=== PATIENT | male | born 1980 | race Caucasian/White ===

== ENCOUNTER 2018-03-15 19:04 | Observation (INO) | payer BC, OTHER ==
[2018-03-15] MEDS ORDERED: NITROGLYCERIN OINT 1 INCH/GM PACKET TOPICAL STA (19:14)
[2018-03-15] MEDS ORDERED: ASPIRIN 81 MG PO STA (19:14)
--- NOTE | 2018-03-15 19:16 | ED ---
General Adult HPI - General Chief complaint: Chest Pain Stated complaint: Chest Pain Time Seen by Provider: 03/15/18 19:05 Source: patient, RN notes reviewed Mode of arrival: ambulatory Limitations: no limitations - History of Present Illness Initial comments: This is a 38-year-old male who presents to the emergency department complaining of 20 minutes chest pain patient states the pain radiates to his jaw and his right arm. Patient states he also became very diaphoretic when this happened. Patient denies any smoking history. Patient denies diabetes hypertension high cholesterol. Patient states he has a very strong family history of heart disease his mother had a heart attack when she was in her 30s. Patient denies any recent fever chills or cough. Patient denies any nausea vomiting diarrhea. Patient denies any back pain. Patient denies headache patient denies numbness weakness. Patient denies lightheadedness dizziness or nursing episode. - Related Data Previous Rx's Medication Instructions Recorded Benzonatate [Tessalon Perles] 200 mg PO TID PRN #30 capsule 08/14/14 Famotidine [Pepcid] 20 mg PO BID #40 tablet 08/14/14 Allergies Allergy/AdvReac Type Severity Reaction Status Date / Time No Known Allergies Allergy Verified 03/15/18 19:08 Review of Systems ROS Statement: Those systems with pertinent positive or pertinent negative responses have been documented in the HPI. ROS Other: All systems not noted in ROS Statement are negative. Past Medical History Past Medical History: No Reported History History of Any Multi-Drug Resistant Organisms: None Reported Past Surgical History: No Surgical Hx Reported Past Psychological History: No Psychological Hx Reported Smoking Status: Never smoker Past Alcohol Use History: None Reported Past Drug Use History: None Reported General Exam - General Exam Comments Initial Comments: GENERAL: Patient is well-developed and well-nourished. Patient is nontoxic and well- hydrated and is in mild distress. ENT: Neck is soft and supple. No significant lymphadenopathy is noted. Oropharynx is clear. Moist mucous membranes. Neck has full range of motion without eliciting any pain. EYES: The sclera were anicteric and conjunctiva were pink and moist. Extraocular movements were intact and pupils were equal round and reactive to light. Eyelids were unremarkable. PULMONARY: Unlabored respirations. Good breath sounds bilaterally. No audible rales rhonchi or wheezing was noted. CARDIOVASCULAR: There is a regular rate and rhythm without any murmurs gallops or rubs. ABDOMEN: Soft and nontender with normal bowel sounds. No palpable organomegaly was noted. There is no palpable pulsatile mass. SKIN: Skin is clear with no lesions or rashes and otherwise unremarkable. NEUROLOGIC: Patient is alert and oriented x3. Cranial nerves II through XII are grossly intact. Motor and sensory are also intact. Normal speech, volume and content. Symmetrical smile. MUSCULOSKELETAL: Normal extremities with adequate strength and full range of motion. No lower extremity swelling or edema. No calf tenderness. LYMPHATICS: No significant lymphadenopathy is noted PSYCHIATRIC: Normal psychiatric evaluation. Normal interpersonal interactions appears functionally intact in deals appropriately with others. No signs of depression. No signs of anxiety. Limitations: no limitations Course Vital Signs 03/15/18 19:06 Temperature 97.7 F Pulse Rate 108 H Respiratory 18 Rate Blood Pressure 149/76 O2 Sat by Pulse 98 Oximetry Medical Decision Making - Medical Decision Making EKG shows normal sinus rhythm at 76 bpm ME interval is 176 dresses 90 QT interval 382 QTC is 429. Patient's EKG shows no ST segment elevation or depression or T wave abnormalities are noted. No extrasystoles noted. Chest x-ray shows no acute abnormality. Patient's chest pains were consistent with unstable angina so I put the patient on heparin. I spoke with Dr. Graves's nurse practitioner accept the patient admitted the patient I wrote admitting orders I consult to cardiology. I continued heparin and aspirin and Nitropaste on the floor. - Lab Data Result diagrams: 03/15/18 19:27 03/15/18 19:27 Lab Results 03/15/18 03/15/18 03/15/18 Range/Units 19:27 19:27 19:27 WBC 7.7 (3.8-10.6) k/uL RBC 4.86 (4.30-5.90) m/uL Hgb 15.1 (13.0-17.5) gm/dL Hct 45.6 (39.0-53.0) % MCV 93.7 (80.0-100.0) fL MCH 31.0 (25.0-35.0) pg MCHC 33.1 (31.0-37.0) g/dL RDW 12.7 (11.5-15.5) % Plt Count 287 (150-450) k/uL Neutrophils % 58 % Lymphocytes % 30 % Monocytes % 7 % Eosinophils % 3 % Basophils % 1 % Neutrophils # 4.4 (1.3-7.7) k/uL Lymphocytes # 2.3 (1.0-4.8) k/uL Monocytes # 0.5 (0-1.0) k/uL Eosinophils # 0.2 (0-0.7) k/uL Basophils # 0.1 (0-0.2) k/uL PT (9.0-12.0) sec INR (<1.2) APTT (22.0-30.0) sec Sodium 145 (137-145) mmol/L Potassium 4.1 (3.5-5.1) mmol/L Chloride 106 (98-107) mmol/L Carbon Dioxide 27 (22-30) mmol/L Anion Gap 12 mmol/L BUN 24 H (9-20) mg/dL Creatinine 1.10 (0.66-1.25) mg/dL Est GFR (CKD-EPI)AfAm >90 (>60 ml/min/1.73 sqM) Est GFR (CKD-EPI)NonAf 84 (>60 ml/min/1.73 sqM) Glucose 95 (74-99) mg/dL Calcium 9.7 (8.4-10.2) mg/dL Magnesium 1.8 (1.6-2.3) mg/dL Total Bilirubin 0.3 (0.2-1.3) mg/dL AST 26 (17-59) U/L ALT 39 (21-72) U/L Alkaline Phosphatase 109 (38-126) U/L Total Creatine Kinase 69 (55-170) U/L CK-MB (CK-2) 0.3 (0.0-2.4) ng/mL CK-MB (CK-2) Rel Index 0.4 Troponin I <0.012 (0.000-0.034) ng/mL Total Protein 7.2 (6.3-8.2) g/dL Albumin 4.3 (3.5-5.0) g/dL 03/15/18 Range/Units 19:27 WBC (3.8-10.6) k/uL RBC (4.30-5.90) m/uL Hgb (13.0-17.5) gm/dL Hct (39.0-53.0) % MCV (80.0-100.0) fL MCH (25.0-35.0) pg MCHC (31.0-37.0) g/dL RDW (11.5-15.5) % Plt Count (150-450) k/uL Neutrophils % % Lymphocytes % % Monocytes % % Eosinophils % % Basophils % % Neutrophils # (1.3-7.7) k/uL Lymphocytes # (1.0-4.8) k/uL Monocytes # (0-1.0) k/uL Eosinophils # (0-0.7) k/uL Basophils # (0-0.2) k/uL PT 9.8 (9.0-12.0) sec INR 1.0 (<1.2) APTT 25.3 (22.0-30.0) sec Sodium (137-145) mmol/L Potassium (3.5-5.1) mmol/L Chloride (98-107) mmol/L Carbon Dioxide (22-30) mmol/L Anion Gap mmol/L BUN (9-20) mg/dL Creatinine (0.66-1.25) mg/dL Est GFR (CKD-EPI)AfAm (>60 ml/min/1.73 sqM) Est GFR (CKD-EPI)NonAf (>60 ml/min/1.73 sqM) Glucose (74-99) mg/dL Calcium (8.4-10.2) mg/dL Magnesium (1.6-2.3) mg/dL Total Bilirubin (0.2-1.3) mg/dL AST (17-59) U/L ALT (21-72) U/L Alkaline Phosphatase (38-126) U/L Total Creatine Kinase (55-170) U/L CK-MB (CK-2) (0.0-2.4) ng/mL CK-MB (CK-2) Rel Index Troponin I (0.000-0.034) ng/mL Total Protein (6.3-8.2) g/dL Albumin (3.5-5.0) g/dL Critical Care Time Critical Care Time: Yes Total Critical Care Time: 35 Disposition Clinical Impression: Unstable angina pectoris Disposition: ADMITTED IP TO THIS HOSP Referrals: John Malin MD [Primary Care Provider] - 1-2 days Time of Disposition: 20:28
[2018-03-15 19:46] LABS: Basophils # (A) 0.1 k/uL (0-0.2); Basophils % (A) 1 %; Eosinophils # (A) 0.2 k/uL (0-0.7); Eosinophils % (A) 3 %; HCT 45.6 % (39.0-53.0); HGB 15.1 gm/dL (13.0-17.5); Lymphocytes # (A) 2.3 k/uL (1.0-4.8); Lymphocytes % (A) 30 %; MCHC 33.1 g/dL (31.0-37.0); MCV 93.7 fL (80.0-100.0); Mean Platelet Volume 6.9; Monocytes # (A) 0.5 k/uL (0-1.0); Monocytes % (A) 7 %; Neutrophils # (A) 4.4 k/uL (1.3-7.7); Neutrophils % (A) 58 %; Platelet Count 287 k/uL (150-450); RBC 4.86 m/uL (4.30-5.90); RDW 12.7 % (11.5-15.5); WBC 7.7 k/uL (3.8-10.6)
[2018-03-15 19:57] LABS: Partial Thromboplastin Time 25.3 sec (22.0-30.0); Prothrombin Time 9.8 sec (9.0-12.0)
[2018-03-15 19:58] LABS: ALT 39 U/L (21-72); AST 26 U/L (17-59); Albumin 4.3 g/dL (3.5-5.0); Alkaline Phosphatase 109 U/L (38-126); Anion Gap 12 mmol/L; Blood Urea Nitrogen 24 mg/dL (9-20); Calcium 9.7 mg/dL (8.4-10.2); Carbon Dioxide 27 mmol/L (22-30); Chloride 106 mmol/L (98-107); Glucose 95 mg/dL (74-99); Magnesium 1.8 mg/dL (1.6-2.3); Potassium 4.1 mmol/L (3.5-5.1); Sodium 145 mmol/L (137-145); Total Bilirubin 0.3 mg/dL (0.2-1.3); Total Protein 7.2 g/dL (6.3-8.2)
[2018-03-15 20:09] LABS: Creatine Kinase 69 U/L (55-170)
[2018-03-15 20:22] LABS: Creatine Kinase MB 0.3 ng/mL (0.0-2.4); Troponin I <0.012 ng/mL (0.000-0.034)
--- NOTE | 2018-03-15 20:23 | XR ---
EXAMINATION: XR chest 2V DATE AND TIME: 03/15/2018 7:46 PM ORDERING PROVIDER: Singh Mariee MD CLINICAL INDICATION: Chest Pain TECHNIQUE: PA and lateral COMPARISON: 08/14/2014 DESCRIPTION: The lungs are clear. The pleural spaces are negative. The cardiac silhouette is not enlarged. The mediastinal and pleural silhouettes are unremarkable. The skeletal structures are intact without focal findings. The soft tissues are unremarkable. IMPRESSION: NO ACUTE PROCESS.
[2018-03-15] MEDS ORDERED: HEPARIN SODIUM,PORCINE 5,000 UNIT/ML 1 ML VIAL IV ONE (20:28)
[2018-03-15] MEDS ORDERED: HEPARIN SODIUM,PORCINE/D5W PMX 25,000 UNIT in DEXTROSE/WATER 1 500ML.BAG IV SCH (20:30)
[2018-03-15] MEDS ORDERED: NITROGLYCERIN SL TABS 0.4 MG TAB SUBLINGUAL PRN (20:31)
[2018-03-15 21:50] VITALS: RESP 16
[2018-03-15] MEDS: NITROGLYCERIN OINT 1 INCH/GM PACKET TOPICAL SCH (22:46)
[2018-03-16] MEDS ORDERED: IBUPROFEN 800 MG TAB PO PRN (00:52)
[2018-03-16 02:49] LABS: Cholesterol 156 mg/dL (<200); HDL Cholesterol 31 mg/dL (40-60); LDL Cholesterol,Calculated 89 mg/dL (0-99); Triglycerides 180 mg/dL (<150)
[2018-03-16] MEDS ORDERED: HEPARIN SODIUM,PORCINE 5,000 UNIT/ML 1 ML VIAL IV PRN (03:00)
[2018-03-16 03:07] LABS: Creatine Kinase 57 U/L (55-170)
[2018-03-16 03:18] LABS: Creatine Kinase MB 0.4 ng/mL (0.0-2.4); Troponin I <0.012 ng/mL (0.000-0.034)
[2018-03-16] MEDS: NITROGLYCERIN OINT 1 INCH/GM PACKET TOPICAL SCH (04:14)
[2018-03-16 07:55] LABS: Creatine Kinase 54 U/L (55-170)
[2018-03-16 08:08] LABS: Creatine Kinase MB 0.4 ng/mL (0.0-2.4); Troponin I <0.012 ng/mL (0.000-0.034)
[2018-03-16] MEDS ORDERED: ASPIRIN 325 MG TAB PO SCH (09:00)
--- NOTE | 2018-03-16 09:33 | P.CRDCN ---
History of Present Illness History of present illness: Mr. Avila is a pleasant 38-year-old male with no significant past medical history. He denies history of coronary artery disease, hypertension, diabetes mellitus or dyslipidemia. His mother has heart disease starting in her mid-30's. He is a non-smoker. We have been asked to see him in consultation for chest pain. He states last night while sitting on the couch he developed a tightness in the right anterior chest wall with radiation through to the back and into the left neck with right arm numbness. He also became extremely diaphoretic. He stood up and walked into the kitchen and that seemed to intensify the pain. He went back to sit down and the pain subsided on its own after about 5-10 minutes. He has had no reoccurrence of the pain. Denies associated shortness of breath, nausea, vomiting, dizziness or palpitations. Telemetry tracings have been unremarkable. EKG reveals sinus mechanism with no acute ST or T-wave abnormalities. Chest xray is negative for an acute cardiopulmonary process. Laboratory data reviewed, hgb 15.1, plt 287, sodium 145, potassium 4.1, magnesium 1.8, creatinine 1.1, cardiac enzymes negative x3, LDL 89, HDL 31, triglycerides 180, total cholesterol 156. He takes no daily medications and there are no old cardiac records to review. Cardiac risk factors include significant family history. Review of Systems At the time of my exam: CONSTITUTIONAL: Denies fever. Denies chills. EYES: Denies blurred vision. Denies vision changes. Denies eye pain. EARS, NOSE, MOUTH & THROAT: Denies headache. Denies sore throat. Denies ear pain. CARDIOVASCULAR: Denies chest pain. Denies shortness of breath. Denies orthopnea. Denies PND. Denies palpitations. RESPIRATORY: Denies cough. GASTROINTESTINAL: Denies abdominal pain. Denies diarrhea. Denies constipation. Denies nausea. Denies vomiting. MUSCULOSKELETAL: Denies myalgias. INTEGUMENTARY: Denies pruitis. Denies rash. NEUROLOGIC: Denies numbness. Denies tingling. Denies weakness. PSYCHIATRIC: Denies anxiety. Denies depression. ENDOCRINE: Denies fatigue. Denies weight change. Denies polydipsia. Denies polyurina. GENITOURINARY: Denies burning, hematuria or urgency with micturation. HEMATOLOGIC: Denies history of anemia. Denies bleeding. Past Medical History Past Medical History: No Reported History Additional Past Medical History / Comment(s): possible hypothyroid, autoimmune skin disorder History of Any Multi-Drug Resistant Organisms: None Reported Past Surgical History: Hernia Repair, Tonsillectomy Past Anesthesia/Blood Transfusion Reactions: No Reported Reaction Past Psychological History: No Psychological Hx Reported Smoking Status: Never smoker Past Alcohol Use History: None Reported Past Drug Use History: None Reported - Past Family History Father Family Medical History: Cancer Additional Family Medical History / Comment(s): gluacoma, emphysema, testicular cancer Mother Family Medical History: Coronary Artery Disease (CAD), Myocardial Infarction (ND ) Additional Family Medical History / Comment(s): ND in her 30's, osteoporosis Sister(s) Family Medical History: Seizure Disorder Daughter(s) Family Medical History: No Reported History Son(s) Family Medical History: No Reported History Medications and Allergies Allergies Allergy/AdvReac Type Severity Reaction Status Date / Time acetaminophen [From Tylenol] AdvReac Unknown Verified 03/16/18 00:24 Physical Exam Vitals: Vital Signs Temp Pulse Pulse Resp BP BP Pulse Ox 03/16/18 07:29 97.8 F 60 16 105/52 96 03/16/18 07:06 95 03/16/18 04:00 16 03/16/18 03:56 97.9 F 70 16 106/56 97 03/15/18 23:57 97.9 F 68 16 109/53 96 03/15/18 21:55 16 03/15/18 21:49 98.2 F 69 16 118/60 95 03/15/18 20:52 97.8 F 82 18 118/66 98 03/15/18 19:06 97.7 F 108 H 18 149/76 98 Intake and Output 03/15/18 03/16/18 03/16/18 22:59 06:59 14:59 Intake Total 106.375 Balance 106.375 Intake: Intake, IV Titration 106.375 Amount Heparin Sodium,Porcine/ 106.375 D5w Pmx 25,000 unit In Dextrose/Water 1 500ml. bag @ 12 UNITS/KG/HR 18.5 mls/hr IV .Q24H [facility] Rx#: [id number] Other: Voiding Method Toilet Toilet Weight 77.111 kg Blood pressure 105/52 heart rate 68 afebrile maintaining oxygen saturation on room air GENERAL: This is a 38-year-old male in no apparent distress at the time of my examination. HEENT: Head is atraumatic, normocephalic. Pupils are equal, round. Sclerae anicteric. Conjunctivae are clear. Mucous membranes of the mouth are moist. Neck is supple. There is no jugular venous distention. No carotid bruit is heard. LUNGS: Clear to auscultation no wheezes, rales or rhonchi. No chest wall tenderness is noted on palpation or with deep breathing. HEART: Regular rate and rhythm without murmurs, rubs or gallops. S1 and S2 heard. ABDOMEN: Soft, nontender. Bowel sounds are heard. No organomegaly noted. EXTREMITIES: No evidence of peripheral edema and no calf tenderness noted. VASCULAR: Radial and dorsalis pedis pulses palpated, no evidence of clubbing. NEUROLOGIC: Patient is awake, alert and oriented x3. Results 03/15/18 19:27 03/15/18 19:27 Cardiac Enzymes 03/15/18 03/15/18 03/15/18 Range/Units 19:27 19:27 19:27 WBC 7.7 (3.8-10.6) k/uL RBC 4.86 (4.30-5.90) m/uL Hgb 15.1 (13.0-17.5) gm/dL Hct 45.6 (39.0-53.0) % MCV 93.7 (80.0-100.0) fL MCH 31.0 (25.0-35.0) pg MCHC 33.1 (31.0-37.0) g/dL RDW 12.7 (11.5-15.5) % Plt Count 287 (150-450) k/uL Neutrophils % 58 % Lymphocytes % 30 % Monocytes % 7 % Eosinophils % 3 % Basophils % 1 % Neutrophils # 4.4 (1.3-7.7) k/uL Lymphocytes # 2.3 (1.0-4.8) k/uL Monocytes # 0.5 (0-1.0) k/uL Eosinophils # 0.2 (0-0.7) k/uL Basophils # 0.1 (0-0.2) k/uL PT (9.0-12.0) sec INR (<1.2) APTT (22.0-30.0) sec Sodium 145 (137-145) mmol/L Potassium 4.1 (3.5-5.1) mmol/L Chloride 106 (98-107) mmol/L Carbon Dioxide 27 (22-30) mmol/L Anion Gap 12 mmol/L BUN 24 H (9-20) mg/dL Creatinine 1.10 (0.66-1.25) mg/dL Est GFR (CKD-EPI)AfAm >90 (>60 ml/min/1.73 sqM) Est GFR (CKD-EPI)NonAf 84 (>60 ml/min/1.73 sqM) Glucose 95 (74-99) mg/dL Calcium 9.7 (8.4-10.2) mg/dL Magnesium 1.8 (1.6-2.3) mg/dL Total Bilirubin 0.3 (0.2-1.3) mg/dL AST 26 (17-59) U/L ALT 39 (21-72) U/L Alkaline Phosphatase 109 (38-126) U/L Total Creatine Kinase 69 (55-170) U/L CK-MB (CK-2) 0.3 (0.0-2.4) ng/mL CK-MB (CK-2) Rel Index 0.4 Troponin I <0.012 (0.000-0.034) ng/mL Total Protein 7.2 (6.3-8.2) g/dL Albumin 4.3 (3.5-5.0) g/dL Triglycerides (<150) mg/dL Cholesterol (<200) mg/dL LDL Cholesterol, Calc (0-99) mg/dL HDL Cholesterol (40-60) mg/dL 03/15/18 03/16/18 03/16/18 Range/Units 19:27 02:12 02:12 WBC (3.8-10.6) k/uL RBC (4.30-5.90) m/uL Hgb (13.0-17.5) gm/dL Hct (39.0-53.0) % MCV (80.0-100.0) fL MCH (25.0-35.0) pg MCHC (31.0-37.0) g/dL RDW (11.5-15.5) % Plt Count (150-450) k/uL Neutrophils % % Lymphocytes % % Monocytes % % Eosinophils % % Basophils % % Neutrophils # (1.3-7.7) k/uL Lymphocytes # (1.0-4.8) k/uL Monocytes # (0-1.0) k/uL Eosinophils # (0-0.7) k/uL Basophils # (0-0.2) k/uL PT 9.8 (9.0-12.0) sec INR 1.0 (<1.2) APTT 25.3 (22.0-30.0) sec Sodium (137-145) mmol/L Potassium (3.5-5.1) mmol/L Chloride (98-107) mmol/L Carbon Dioxide (22-30) mmol/L Anion Gap mmol/L BUN (9-20) mg/dL Creatinine (0.66-1.25) mg/dL Est GFR (CKD-EPI)AfAm (>60 ml/min/1.73 sqM) Est GFR (CKD-EPI)NonAf (>60 ml/min/1.73 sqM) Glucose (74-99) mg/dL Calcium (8.4-10.2) mg/dL Magnesium (1.6-2.3) mg/dL Total Bilirubin (0.2-1.3) mg/dL AST (17-59) U/L ALT (21-72) U/L Alkaline Phosphatase (38-126) U/L Total Creatine Kinase 57 (55-170) U/L CK-MB (CK-2) 0.4 (0.0-2.4) ng/mL CK-MB (CK-2) Rel Index 0.7 Troponin I <0.012 (0.000-0.034) ng/mL Total Protein (6.3-8.2) g/dL Albumin (3.5-5.0) g/dL Triglycerides 180 H (<150) mg/dL Cholesterol 156 (<200) mg/dL LDL Cholesterol, Calc 89 (0-99) mg/dL HDL Cholesterol 31 L (40-60) mg/dL 03/16/18 Range/Units 02:12 WBC (3.8-10.6) k/uL RBC (4.30-5.90) m/uL Hgb (13.0-17.5) gm/dL Hct (39.0-53.0) % MCV (80.0-100.0) fL MCH (25.0-35.0) pg MCHC (31.0-37.0) g/dL RDW (11.5-15.5) % Plt Count (150-450) k/uL Neutrophils % % Lymphocytes % % Monocytes % % Eosinophils % % Basophils % % Neutrophils # (1.3-7.7) k/uL Lymphocytes # (1.0-4.8) k/uL Monocytes # (0-1.0) k/uL Eosinophils # (0-0.7) k/uL Basophils # (0-0.2) k/uL PT (9.0-12.0) sec INR (<1.2) APTT 44.8 H (22.0-30.0) sec Sodium (137-145) mmol/L Potassium (3.5-5.1) mmol/L Chloride (98-107) mmol/L Carbon Dioxide (22-30) mmol/L Anion Gap mmol/L BUN (9-20) mg/dL Creatinine (0.66-1.25) mg/dL Est GFR (CKD-EPI)AfAm (>60 ml/min/1.73 sqM) Est GFR (CKD-EPI)NonAf (>60 ml/min/1.73 sqM) Glucose (74-99) mg/dL Calcium (8.4-10.2) mg/dL Magnesium (1.6-2.3) mg/dL Total Bilirubin (0.2-1.3) mg/dL AST (17-59) U/L ALT (21-72) U/L Alkaline Phosphatase (38-126) U/L Total Creatine Kinase (55-170) U/L CK-MB (CK-2) (0.0-2.4) ng/mL CK-MB (CK-2) Rel Index Troponin I (0.000-0.034) ng/mL Total Protein (6.3-8.2) g/dL Albumin (3.5-5.0) g/dL Triglycerides (<150) mg/dL Cholesterol (<200) mg/dL LDL Cholesterol, Calc (0-99) mg/dL HDL Cholesterol (40-60) mg/dL Coagulation 03/15/18 03/16/18 Range/Units 19:27 02:12 PT 9.8 (9.0-12.0) sec APTT 25.3 44.8 H (22.0-30.0) sec Lipids 03/16/18 Range/Units 02:12 Triglycerides 180 H (<150) mg/dL Cholesterol 156 (<200) mg/dL HDL Cholesterol 31 L (40-60) mg/dL CBC 03/15/18 Range/Units 19:27 WBC 7.7 (3.8-10.6) k/uL RBC 4.86 (4.30-5.90) m/uL Hgb 15.1 (13.0-17.5) gm/dL Hct 45.6 (39.0-53.0) % Plt Count 287 (150-450) k/uL Comprehensive Metabolic Panel 03/15/18 Range/Units 19:27 Sodium 145 (137-145) mmol/L Potassium 4.1 (3.5-5.1) mmol/L Chloride 106 (98-107) mmol/L Carbon Dioxide 27 (22-30) mmol/L BUN 24 H (9-20) mg/dL Creatinine 1.10 (0.66-1.25) mg/dL Glucose 95 (74-99) mg/dL Calcium 9.7 (8.4-10.2) mg/dL AST 26 (17-59) U/L ALT 39 (21-72) U/L Alkaline Phosphatase 109 (38-126) U/L Total Protein 7.2 (6.3-8.2) g/dL Albumin 4.3 (3.5-5.0) g/dL Current Medications Generic Name Dose Route Start Last Admin Trade Name Freq PRN Reason Stop Dose Admin Aspirin 325 mg 03/16/18 09:00 Aspirin PO DAILY SUZANNE Heparin Sodium (Porcine) 0 unit 03/16/18 03:00 03/16/18 03:31 Heparin IV 1,925 unit PER PROTOCOL PRN Administration Low PTT Protocol Heparin Sodium/Dextrose 25,000 500 mls @ 18.5 mls/hr 03/15/18 20:30 03/16/18 03:00 unit/ IV Solution IV 14 units/kg/hr .Q24H SUZANNE 21.59 mls/hr Protocol Titration 12 UNITS/KG/HR Ibuprofen 800 mg 03/16/18 00:52 Motrin PO TID PRN Pain Nitroglycerin 1 inch 03/16/18 00:00 03/16/18 04:14 Nitro-Bid Oint TOPICAL Not Given Q6HR [facility] Nitroglycerin 0.4 mg 03/15/18 20:31 Nitrostat SUBLINGUAL Q5M PRN Chest Pain Intake and Output 03/15/18 03/16/18 03/16/18 22:59 06:59 14:59 Intake Total 106.375 Balance 106.375 Intake: Intake, IV Titration 106.375 Amount Heparin Sodium,Porcine/ 106.375 D5w Pmx 25,000 unit In Dextrose/Water 1 500ml. bag @ 12 UNITS/KG/HR 18.5 mls/hr IV .Q24H [facility] Rx#: [id number] Other: Voiding Method Toilet Toilet Weight 77.111 kg 03/15/18 19:27 03/15/18 19:27 Assessment and Plan Assessment: ASSESSMENT 1. Unstable angina, an acute coronary event has been ruled out with no EKG evidence of ischemia and negative cardiac enzymes. 2. Significant family history of coronary artery disease with mother having a heart attack in her mid-30's PLAN Obtain 2D echocardiogram and doppler study to assess cardiac structure and function. Perform Cardiolyte stress test to assess for reversible stress induced ischemia. If stress test is normal he is stable from a cardiac perspective to follow up with Dr. Munroe in 2-3 weeks. If abnormal we will consider coronary angiography. Thank you kindly for this consultation. The above impression and plan of care have been discussed and directed by the signing physician. Annika Gtz, nurse practitioner, acting as scribe for signing physician.
--- NOTE | 2018-03-16 10:23 | NM ---
EXAMINATION TYPE: NM stress cardiolite complete DATE OF EXAM: 03/16/2018 COMPARISON: NONE HISTORY: Family history of heart attack and mom presents with chest pain TECHNIQUE: After the intravenous administration of 9.58 mCi Tc 99m Sestamibi - Rest images obtained 55 minutes post injection. The patient exercised using a YUMIKO protocol and 1 minute prior to peak exercise was injected with 26.8 mCi Tc 99m Sestamibi - Stress images obtained 9 minutes post injectio n. FINDINGS: Targeted heart rate was achieved during performance of the study. Review of stress and rest SPECT ana ges demonstrates no distinct perfusion abnormality. Gated analysis shows normal wall motion with an estimated left ventricular ejection fraction of 62 %. IMPRESSION: No scintigraphic evidence for reversible ischemia
--- NOTE | 2018-03-16 11:59 | ECHOF ---
Referral Reason:cp MEASUREMENTS -------- HEIGHT: 175.3 cm WEIGHT: 77.1 kg BP: 105/52 RVIDd: 2.3 cm (< 3.3) IVSd: 1.0 cm (0.6 - 1.1) LVIDd: 5.0 cm (3.9 - 5.3) LVPWd: 0.9 cm (0.6 - 1.1) IVSs: 1.5 cm LVIDs: 3.2 cm LVPWs: 1.4 cm LA Diam: 3.1 cm (2.7 - 3.8) LAESV Index (A-L): 16.09 ml/m Ao Diam: 3.1 cm (2.0 - 3.7) AV Cusp: 2.2 cm (1.5 - 2.6) MV EXCURSION: 19.176 mm (> 18.000) MV EF SLOPE: 130 mm/s (70 - 150) EPSS: 1.2 cm MV E Ascencion: 0.64 m/s MV DecT: 242 ms MV A Ascencion: 0.67 m/s MV E/A Ratio: 0.94 FINDINGS -------- Sinus rhythm. This was a technically good study. The left ventricular size is normal. Left ventricular wall thickness is normal. Overall left vent ricular systolic function is normal with, an EF between 60 - 65 %. The right ventricle is normal in size. Normal LA size by volume 22+/-6 ml/m2. The right atrium is normal in size. The aortic valve is trileaflet and appears structurally normal. The mitral valve is normal. The tricuspid valve appears structurally normal. There is no pulmonic regurgitation present. The aortic root size is normal. Normal inferior vena cava with normal inspiratory collapse consistent with estimated right atrial pre ssure of 5 mmHg. There is no pericardial effusion. CONCLUSIONS -------- 1. Sinus rhythm. 2. This was a technically good study. 3. The left ventricular size is normal. 4. Left ventricular wall thickness is normal. 5. Overall left ventricular systolic function is normal with, an EF between 60 - 65 %. 6. The right ventricle is normal in size. 7. Normal LA size by volume 22+/-6 ml/m2. 8. The right atrium is normal in size. 9. The aortic valve is trileaflet and appears structurally normal. 10. The mitral valve is normal. 11. The tricuspid valve appears structurally normal. 12. There is no pulmonic regurgitation present. 13. The aortic root size is normal. 14. Normal inferior vena cava with normal inspiratory collapse consistent with estimated right atrial pressure of 5 mmHg. 15. There is no pericardial effusion. DEPUTY PROBATION OFFICER: Leonila Bang RDCS
--- NOTE | 2018-03-16 12:28 | EST ---
EXERCISE STRESS DATE OF SERVICE: 03/16/2018 AGE: 38 SEX: Male HT: 5'9" WT: 170 pounds PROTOCOL: Cardiolite Mgano STAGE: V DURATION OF EXERCISE: 13 minutes HEART RATE REST: 100 BLOOD PRESSURE REST: 121/81 MAXIMUM HEART RATE ACHIEVED: 160 MAXIMUM BLOOD PRESSURE: 163/87 85% MPHR: 153 100% MPHR: 180 METS: 14 INDICATIONS: Chest pain. CLINICAL INFORMATION: Baseline EKG shows sinus rhythm, normal axis, normal intervals. Patient exercised on Magno protocol for a total of 13 minutes achieving 14 METs, 89% of predicted maximal heart rate without chest pain or diagnostic ST-segment depression. CONCLUSIONS: 1. Excellent exercise tolerance. 2. Negative stress test by EKG criteria. 3. Cardiolite portion of the stress test will be reported separately. MMODL / IJN: [id number] /
--- NOTE | 2018-03-16 13:19 | HP ---
HISTORY AND PHYSICAL CHIEF COMPLAINT: A 38-year-old white male with 20 minutes of anterior chest pain radiating into his jaws and his right arm down his right arm, became very diaphoretic. He never had this pain before. He denies any history of hypertension, diabetes, or hypercholesterolemia. He has a strong family history, mom had heart attack in her 30s. No fever or chills. No vomiting or diarrhea. Not related to food intake or movement. Denies any recent injury to his neck or any numbness or tingling down either arm. He takes Pepcid 20 mg p.r.n. at home. ALLERGIES: No known drug allergies. REVIEW OF SYSTEMS: Fourteen-point review of systems is normal except for as mentioned in HPI. PAST MEDICAL HISTORY: Past medical history is negative. SURGICAL HISTORY: Negative. SOCIAL HISTORY: No smoking. No alcohol. No illicit drugs. PHYSICAL EXAM: He is a well-developed, well-nourished white male in no acute distress. CARDIOVASCULAR: S1, S2. LUNGS: Clear. GI: Soft. HEMATOLOGY: Negative Homans. MUSCULOSKELETAL: Nontender cervical spinal muscles. Range of motion full x4. VASCULAR: Normal dorsalis pedis, posterior tibial and radial pulses. OPHTHALMOLOGICAL: Pupils equal, round, reactive to light and accommodation. Temp 97.7, respirations 12 to 14, blood pressure 140s over 70s, O2 of 98% on room air. EKG and troponins are negative. GFR is 84. ASSESSMENT: 1. Atypical chest pain, myocardial infarction ruled out. 2. Possible chronic renal disease stage II. 3. Possible hypertension, may need some outpatient hypertension medications. Due a D-dimer to rule out PE. Chest x-ray was normal. If cleared by Cardiology, may be discharged home today if pass the stress test which was apparently normal and echo was normal. MMODL / IJN: [id number] /
[2018-03-16 15:34] VITALS: BP 115/62; PULSE 64; TEMP 97.6
== END 2018-03-16 17:45 | disposition home or self-care (01) ==
LOC: EC 19:04 → 3OBS 20:28
PROVIDERS: ADMIT Family Medicine; ATTEND Family Medicine
DX: R07.89 Other chest pain (principal); R61 Generalized hyperhidrosis; R20.0 Anesthesia of skin; Z82.49 Family history of ischemic heart disease and other diseases of the circulatory system; Z82.5 Family history of asthma and other chronic lower respiratory diseases; Z80.43 Family history of malignant neoplasm of testis; Z82.62 Family history of osteoporosis; Z82.0 Family history of epilepsy and other diseases of the nervous system; Z88.6 Allergy status to analgesic agent; Z79.899 Other long term (current) drug therapy
CPT/HCPCS: 36415; 71046; 78452; 80053; 80061; 82550; 82553; 83735; 84484; 85025; 85379; 85610; 85730; 93005; 93017; 93306; 94760; 96365; 96366; 96376; 99291

== ENCOUNTER → 2020-10-22 | Outpatient (CLI) | payer OTHER ==
--- NOTE | 2020-10-22 17:25 | MR ---
EXAMINATION TYPE: MR shoulder RT wo con DATE OF EXAM: 10/22/2020 COMPARISON: Radiographs 09/21/2017. HISTORY: Pain right shoulder TECHNIQUE: Multiplanar, multisequence imaging of the right shoulder is performed without contrast. FINDINGS: Rotator Cuff: Low to moderate grade insertional tear of the subscapularis tendon with associated smal l fluid in the subcoracoid recess. There is mild bursal surface fraying of the supraspinatus tendon. Otherwise the supraspinatus, infraspinatus and teres minor tendons are grossly intact. No evidence of muscular atrophy or edema. Acromioclavicular Joint: Grossly intact. Glenohumeral Joint: No significant abnormality. Labrum: Mild degeneration/fraying of the superior-anterior glenoid labrum. Biceps Tendon: The long head of biceps is in normal location within bicipital groove. Bone marrow signal: No focal abnormal marrow signal is appreciated. Other: No additional significant abnormality is appreciated. IMPRESSION: Low to moderate grade insertional tear of the subscapularis tendon with associated small fluid in the subcoracoid recess. No evidence of full-thickness rotator cuff tear.
== END | disposition home or self-care (01) ==
LOC: RADMRIMAIN 06:45
PROVIDERS: ATTEND Orthopaedic Surgery Sports Medicine
DX: S46.011A Strain of muscle(s) and tendon(s) of the rotator cuff of right shoulder, initial encounter (principal); M25.811 Other specified joint disorders, right shoulder

== ENCOUNTER 2021-10-24 16:05 | Observation (INO) | payer BC, OTHER ==
--- NOTE | 2021-10-24 18:03 | ED ---
General Adult HPI - General Chief complaint: Chest Pain Stated complaint: Chest pain,L arm numbness Time Seen by Provider: 10/24/21 16:15 Source: patient, RN notes reviewed, old records reviewed Mode of arrival: ambulatory Limitations: no limitations - History of Present Illness Initial comments: This is a 41-year-old male who presents to the emergency department complaining of upper left chest pain that goes into his neck and down his arm. Patient s tates she's been intermittent all day today. Patient states last episode he had was quite significant and she became diaphoretic so he came to the emergency department. Patient states he has a family history significant for heart disease. Patient denies smoking diabetes hypertension high cholesterol. Patient denies any recent fever chills or cough. Patient denies abdominal pain patient denies nausea vomiting diarrhea. Patient denies any swelling to the legs or calf tenderness. - Related Data Home Medications Medication Instructions Recorded Confirmed No Known Home Medications 03/16/18 10/24/21 Allergies Allergy/AdvReac Type Severity Reaction Status Date / Time acetaminophen [From Tylenol] AdvReac Unknown Verified 10/24/21 17:41 Review of Systems ROS Statement: Those systems with pertinent positive or pertinent negative responses have been documented in the HPI. ROS Other: All systems not noted in ROS Statement are negative. Past Medical History Past Medical History: Skin Disorder, Thyroid Disorder Additional Past Medical History / Comment(s): possible hypothyroid, autoimmune skin disorder History of Any Multi-Drug Resistant Organisms: None Reported Past Surgical History: Hernia Repair, Tonsillectomy Past Anesthesia/Blood Transfusion Reactions: No Reported Reaction Past Psychological History: No Psychological Hx Reported Smoking Status: Former smoker Past Alcohol Use History: None Reported Past Drug Use History: None Reported - Past Family History Father Family Medical History: Cancer Additional Family Medical History / Comment(s): gluacoma, emphysema, testicular cancer Mother Family Medical History: Coronary Artery Disease (CAD), Myocardial Infarction ([place]) Additional Family Medical History / Comment(s): [place] in her 30's, osteoporosis Sister(s) Family Medical History: Seizure Disorder Daughter(s) Family Medical History: No Reported History Son(s) Family Medical History: No Reported History General Exam - General Exam Comments Initial Comments: GENERAL: Patient is well-developed and well-nourished. Patient is nontoxic and well- hydrated and is in no acute distress. ENT: Neck is soft and supple. No significant lymphadenopathy is noted. Oropharynx is clear. Moist mucous membranes. Neck has full range of motion without eliciting any pain. EYES: The sclera were anicteric and conjunctiva were pink and moist. Extraocular movements were intact and pupils were equal round and reactive to light. Eyelids were unremarkable. PULMONARY: Unlabored respirations. Good breath sounds bilaterally. No audible rales rhonchi or wheezing was noted. CARDIOVASCULAR: There is a regular rate and rhythm without any murmurs gallops or rubs. ABDOMEN: Soft and nontender with normal bowel sounds. SKIN: Skin is clear with no lesions or rashes and otherwise unremarkable. NEUROLOGIC: Patient is alert and oriented x3. Cranial nerves II through XII are grossly intact. Motor and sensory are also intact. Normal speech, volume and content. Symmetrical smile. MUSCULOSKELETAL: Normal extremities with adequate strength and full range of motion. LYMPHATICS: No significant lymphadenopathy is noted PSYCHIATRIC: Normal psychiatric evaluation. Limitations: no limitations Course Vital Signs 10/24/21 10/24/21 10/24/21 16:17 17:15 18:58 Temperature 97.8 F Pulse Rate 88 84 Pulse Rate [ 81 Sitting Welfare Interviewer] Respiratory 16 18 Rate Blood Pressure 125/81 122/81 O2 Sat by Pulse 100 98 Oximetry Medical Decision Making - Medical Decision Making EKG shows normal sinus rhythm at 77 bpm RI interval 260 QRS 92 QT interval is 372 QTC is 420. Patient's EKG shows no ST segment elevation or depression. Chest x-ray shows no acute abnormality. I spoke with some physicians agreed to admit the patient and the patient consult cardiology. - Lab Data Result diagrams: 10/24/21 17:36 10/24/21 17:36 Lab Results 10/24/21 10/24/21 10/24/21 Range/Units 17:36 17:36 17:36 WBC 8.0 (3.8-10.6) k/uL RBC 4.70 (4.30-5.90) m/uL Hgb 14.8 (13.0-17.5) gm/dL Hct 45.8 (39.0-53.0) % MCV 97.4 (80.0-100.0) fL MCH 31.5 (25.0-35.0) pg MCHC 32.3 (31.0-37.0) g/dL RDW 12.4 (11.5-15.5) % Plt Count 296 (150-450) k/uL MPV 7.4 Neutrophils % 65 % Lymphocytes % 23 % Monocytes % 7 % Eosinophils % 2 % Basophils % 1 % Neutrophils # 5.2 (1.3-7.7) k/uL Lymphocytes # 1.9 (1.0-4.8) k/uL Monocytes # 0.6 (0-1.0) k/uL Eosinophils # 0.2 (0-0.7) k/uL Basophils # 0.1 (0-0.2) k/uL PT 10.1 (9.0-12.0) sec INR 0.9 (<1.2) APTT 24.9 (22.0-30.0) sec D-Dimer 0.32 (<0.60) mg/L FEU Sodium 139 (137-145) mmol/L Potassium 4.3 (3.5-5.1) mmol/L Chloride 106 (98-107) mmol/L Carbon Dioxide 27 (22-30) mmol/L Anion Gap 6 mmol/L BUN 22 H (9-20) mg/dL Creatinine 1.11 (0.66-1.25) mg/dL Est GFR (CKD-EPI)AfAm >90 (>60 ml/min/1.73 sqM) Est GFR (CKD-EPI)NonAf 81 (>60 ml/min/1.73 sqM) Glucose 93 (74-99) mg/dL Calcium 9.6 (8.4-10.2) mg/dL Magnesium 1.8 (1.6-2.3) mg/dL Total Bilirubin 0.5 (0.2-1.3) mg/dL AST 40 (17-59) U/L ALT 57 H (4-49) U/L Alkaline Phosphatase 133 H (38-126) U/L Troponin I (0.000-0.034) ng/mL Total Protein 7.7 (6.3-8.2) g/dL Albumin 4.4 (3.5-5.0) g/dL 10/24/21 Range/Units 17:36 WBC (3.8-10.6) k/uL RBC (4.30-5.90) m/uL Hgb (13.0-17.5) gm/dL Hct (39.0-53.0) % MCV (80.0-100.0) fL MCH (25.0-35.0) pg MCHC (31.0-37.0) g/dL RDW (11.5-15.5) % Plt Count (150-450) k/uL MPV Neutrophils % % Lymphocytes % % Monocytes % % Eosinophils % % Basophils % % Neutrophils # (1.3-7.7) k/uL Lymphocytes # (1.0-4.8) k/uL Monocytes # (0-1.0) k/uL Eosinophils # (0-0.7) k/uL Basophils # (0-0.2) k/uL PT (9.0-12.0) sec INR (<1.2) APTT (22.0-30.0) sec D-Dimer (<0.60) mg/L FEU Sodium (137-145) mmol/L Potassium (3.5-5.1) mmol/L Chloride (98-107) mmol/L Carbon Dioxide (22-30) mmol/L Anion Gap mmol/L BUN (9-20) mg/dL Creatinine (0.66-1.25) mg/dL Est GFR (CKD-EPI)AfAm (>60 ml/min/1.73 sqM) Est GFR (CKD-EPI)NonAf (>60 ml/min/1.73 sqM) Glucose (74-99) mg/dL Calcium (8.4-10.2) mg/dL Magnesium (1.6-2.3) mg/dL Total Bilirubin (0.2-1.3) mg/dL AST (17-59) U/L ALT (4-49) U/L Alkaline Phosphatase (38-126) U/L Troponin I <0.012 (0.000-0.034) ng/mL Total Protein (6.3-8.2) g/dL Albumin (3.5-5.0) g/dL Disposition Clinical Impression: Chest pain Disposition: ADMITTED IP TO THIS [facility] Referrals: None,Stated [Primary Care Provider] - 1-2 days Time of Disposition: 19:08
--- NOTE | 2021-10-24 18:06 | XR ---
EXAMINATION TYPE: XR chest 2V DATE OF EXAM: 10/24/2021 COMPARISON: 03/15/2018 HISTORY: Chest pain TECHNIQUE: Frontal and lateral views of the chest are obtained. FINDINGS: There is no focal air space opacity, pleural effusion, or pneumothorax seen. The cardiac silhouette size is within normal limits. The osseous structures are intact. IMPRESSION: No acute cardiopulmonary process.
[2021-10-24 18:08] LABS: Basophils # (A) 0.1 k/uL (0-0.2); Basophils % (A) 1 %; Eosinophils # (A) 0.2 k/uL (0-0.7); Eosinophils % (A) 2 %; HCT 45.8 % (39.0-53.0); HGB 14.8 gm/dL (13.0-17.5); Lymphocytes # (A) 1.9 k/uL (1.0-4.8); Lymphocytes % (A) 23 %; MCH 31.5 pg (25.0-35.0); MCHC 32.3 g/dL (31.0-37.0); MCV 97.4 fL (80.0-100.0); Mean Platelet Volume 7.4; Monocytes # (A) 0.6 k/uL (0-1.0); Monocytes % (A) 7 %; Neutrophils # (A) 5.2 k/uL (1.3-7.7); Neutrophils % (A) 65 %; Platelet Count 296 k/uL (150-450); RDW 12.4 % (11.5-15.5)
[2021-10-24 18:26] LABS: INR 0.9 (<1.2); Partial Thromboplastin Time 24.9 sec (22.0-30.0); Prothrombin Time 10.1 sec (9.0-12.0)
[2021-10-24 18:28] LABS: ALT 57 U/L (4-49); AST 40 U/L (17-59); African American GFR (CKD) >90 (>60 ml/min/1.73 sqM); Albumin 4.4 g/dL (3.5-5.0); Alkaline Phosphatase 133 U/L (38-126); Anion Gap 6 mmol/L; Blood Urea Nitrogen 22 mg/dL (9-20); Calcium 9.6 mg/dL (8.4-10.2); Carbon Dioxide 27 mmol/L (22-30); Chloride 106 mmol/L (98-107); Glucose 93 mg/dL (74-99); Magnesium 1.8 mg/dL (1.6-2.3); Non-African American GFR(CKD) 81 (>60 ml/min/1.73 sqM); Potassium 4.3 mmol/L (3.5-5.1); Sodium 139 mmol/L (137-145); Total Bilirubin 0.5 mg/dL (0.2-1.3); Total Protein 7.7 g/dL (6.3-8.2)
[2021-10-24] MEDS ORDERED: ASPIRIN 81 MG PO STA (19:08)
[2021-10-24] MEDS ORDERED: NITROGLYCERIN SL TABS 0.4 MG TAB SUBLINGUAL PRN (19:08)
[2021-10-24] MEDS ORDERED: ATORVASTATIN 40 MG TAB PO STA (23:41)
--- NOTE | 2021-10-24 23:46 | P.HPIM ---
History of Present Illness H&P Date: 10/24/21 Chief Complaint: Chest pain 41-year-old male with no significant past medical history Patient comes in with sudden onset left-sided chest pain described as left shoulder radiating to the left arm associated with palpitations and profuse sweating pain started all of a sudden while resting doing nothing watching TV this morning he initially describes the pain as mild achy pain however progressed later to dull deep severe pain 9 out of 10 in severity which the patient grew concerned and decided to come in for evaluation he denies any associated nausea vomiting lightheadedness or shortness of breath patient was not related to any activity doesn't get worse with movement or deep breathing. He never experienced anything like this before however he did have some chest d iscomfort few years ago for which she had a negative stress test at that time Patient continues to be worried about coronary artery disease events due to premature CAD in his family from his mother's side and his mother and paternal grandpa Otherwise patient himself denies any smoking or drug abuse he denies any changes recently he denies any physical activity out of the ordinary recently denies any traveling denies any vaccination recently he denies any trauma or falls. Initial workup in the ED was unremarkable Patient did take some ibuprofen home with not much benefit after which she decid ed to come in for evaluation Patient otherwise doesn't take any medications at home Review of Systems Pertinent positives as noted in HPI. All other systems were reviewed and are negative Past Medical History Past Medical History: No Reported History, Skin Disorder Additional Past Medical History / Comment(s): possible hypothyroid, autoimmune skin disorder vitiligo History of Any Multi-Drug Resistant Organisms: None Reported Past Surgical History: Hernia Repair, Tonsillectomy Past Anesthesia/Blood Transfusion Reactions: No Reported Reaction Past Psychological History: No Psychological Hx Reported Smoking Status: Former smoker Past Alcohol Use History: None Reported Past Drug Use History: None Reported - Past Family History Father Family Medical History: Cancer Additional Family Medical History / Comment(s): gluacoma, emphysema, testicular cancer Mother Family Medical History: Coronary Artery Disease (CAD), Myocardial Infarction ([place]) Additional Family Medical History / Comment(s): [place] in her 30's, osteoporosis Sister(s) Family Medical History: Seizure Disorder Daughter(s) Family Medical History: No Reported History Son(s) Family Medical History: No Reported History Medications and Allergies Home Medications Medication Instructions Recorded Confirmed Type No Known Home Medications 03/16/18 10/24/21 History Allergies Allergy/AdvReac Type Severity Reaction Status Date / Time acetaminophen [From Tylenol] AdvReac Unknown Verified 10/24/21 17:41 Physical Exam Vitals: Vital Signs Temp Pulse Pulse Resp BP Pulse Ox 10/24/21 18:58 84 18 122/81 98 10/24/21 17:15 81 10/24/21 16:17 97.8 F 88 16 125/81 100 Intake and Output 10/24/21 10/24/21 10/24/21 06:59 14:59 22:59 Other: Weight 79.379 kg Constitutional: No acute distress, conversant, pleasant Eyes: Anicteric sclerae, moist conjunctiva, Pupils equal round reactive to light ENMT: NC/AT Oropharynx clear, no erythema, or exudates Neck: Supple, FROM, no masses, or JVD No carotid bruits No thyromegaly Lungs: Clear to auscultation Clear to percussion Normal respiratory effort, no accessory muscle use Cardiovascular: Heart regular in rate and rhythm, No murmurs, gallops, or rubs No peripheral edema Abdominal: Soft Nontender, no guarding, rebound or rigidity Abdomen moving with respiration Normoactive bowel sounds No hepatomegaly, No splenomegaly No palpable mass No abdominal wall hernia noted Skin: Normal temperature, tone, texture, turgor No induration No subcutaneous nodules No rash, lesions No ulcers Extremities: No digital cyanosis No clubbing Pedal pulses intact and symmetrical Radial pulses intact and symmetrical No calf tenderness Psychiatric: Alert and oriented to person, place and time Appropriate affect fair judgement Neuro Muscles Strength 5/5 in all 4 extremities Sensation to light touch grossly present throughout Cranial nerves II-XII grossly intact No focal sensory deficits Lymphatics: no palpable cervical or supraclavicular , or inguinal lymph nodes Results CBC & Chem 7: 10/24/21 17:36 10/24/21 17:36 Labs: Abnormal Lab Results - Last 24 Hours (Table) 10/24/21 Range/Units 17:36 BUN 22 H (9-20) mg/dL ALT 57 H (4-49) U/L Alkaline Phosphatase 133 H (38-126) U/L Assessment and Plan Assessment: Atypical chest pain rule out ACS Initial troches negative EKG unremarkable for any acute ST changes Patient initiated on full dose aspirin Patient given one-time dose of statin Check lipid profile Follow-up in trend troponins Cardiac monitoring Cardiology evaluation in the morning Supportive care Pain control with nitro and opiates as needed Supplemental oxygen as needed Covid testing negative Counseled code DVT prophylaxis Lovenox daily Anticipated length of stay less than 2 midnights Anticipated discharge home
[2021-10-24] MEDS ORDERED: MORPHINE SULFATE 2 MG/ML SYRINGE IVP PRN (23:48)
[2021-10-24] MEDS ORDERED: NALOXONE 0.4 MG/ML 1 ML VIAL IV PRN (23:49)
[2021-10-25 05:08] VITALS: RESP 18
[2021-10-25] MEDS: NITROGLYCERIN OINT 1 INCH/GM PACKET TOPICAL SCH ×2 (05:09→06:45)
[2021-10-25 07:53] VITALS: TEMP 97.1
[2021-10-25] MEDS ORDERED: ASPIRIN 325 MG TAB PO SCH (09:00)
[2021-10-25] MEDS ORDERED: ENOXAPARIN 40 MG/0.4 ML SYRINGE SQ SCH (09:00)
[2021-10-25 09:44] LABS: Chol/HDL Ratio 5.43 Ratio; LDL Cholesterol,Calculated 159.7 mg/dL (0.0-131.0)
--- NOTE | 2021-10-25 09:51 | P.CRDCN ---
History of Present Illness History of present illness: HISTORY OF PRESENTING ILLNESS This is a pleasant 41-year-old male with no significant past medical history. He does not follow with a mba intern, Did see Dr. Shaneka Ray for stress test and echo which was normal. We have been asked to see in consultation for chest pain. Patient presents to the hospital with complaints of chest pain. Yesterday, in the morning he started to have some dull left sided chest pain, radiating down his left arm. He states it resolved shortly after. Throughout the day, he was doing his normal daily activities, no exertion, and the chest pain returned, became more intense and more frequent. It is located on the left side of his chest. Radiating down his left arm, he did have associated left hand numbness/tingling and diaphoresis. He also felt some mild palpitations. He states it started to last longer as well. He came to the emergency department for further evaluation. He was given 325mg aspirin. His chest pain has now resolved. He denies associated shortness of breath, nausea, vomiting, lightheadedness, dizziness or syncope/near syncope. He is a non-smoker. Denies alcohol or illicit drug use. Family history includes grandfather had an ID and CABG in 40s, mother had ID and stent placement in her 40s. DIAGNOSTICS EKG reveals sinus rhythm HR 77, poor R wave progression. No significant ST-T wave abnormalities. Telemetry tracings indicate sinus mechanism Chest xray no acute cardiopulmonary process. Most recent stress test, Cardiolite was negative for reversible ischemia Most recent echocardiogram, EF 60-65%, no significant wall motion abnormalities Laboratory reviewed, CBC unremarkable, d-dimer negative, troponin negative 3, sodium 139, potassium 4.3, BUN 22 Current home medications include none. REVIEW OF SYSTEMS At the time of my exam: CONSTITUTIONAL: Denies fever or chills. CARDIOVASCULAR: Denies chest pain, shortness of breath, orthopnea, PND or palpitations. RESPIRATORY: Denies cough. GASTROINTESTINAL: Denies abdominal pain, diarrhea, constipation, nausea or vomiting. MUSCULOSKELETAL: Denies myalgias. NEUROLOGIC: Denies numbness, tingling, headache or weakness. ENDOCRINE: Denies fatigue, weight change, polydipsia or polyurina. GENITOURINARY: Denies burning, hematuria or urgency with micturation. HEMATOLOGIC: Denies history of anemia or bleeding. PHYSICAL EXAMINATION Vitals reviewed CONSTITUTIONAL: No apparent distress. HEENT: Head is normocephalic. Pupils are equal, round. Sclerae anicteric. Mucous membranes of the mouth are moist. No JVD. No carotid bruit. CHEST EXAMINATION: Lungs are clear to auscultation. No chest wall tenderness is noted on palpation or with deep breathing. HEART EXAMINATION: Regular rate and rhythm. S1, S2 heard. No murmurs, gallops or rub. ABDOMEN: Soft, nontender. Positive bowel sounds. EXTREMITIES: 2+ peripheral pulses, no lower extremity edema and no calf tenderness. SKIN: warm, dry NEUROLOGIC EXAMINATION: Patient is awake, alert and oriented x3. ASSESSMENT Chest pain, acute coronary syndrome has been ruled out Family history of coronary artery disease PLAN -An acute coronary event has been ruled out with no EKG evidence of ischemia and negative cardiac enzymes. -Obtain 2D echocardiogram and doppler study to assess cardiac structure and function. -Lipid Panel -Perform stress echo test to assess for stress induced cardiac ischemia. If abnormal will consider coronary angiography. -If stress test is normal, ok to discharge from cardiology perspective and follow up outpatient Thank you kindly for this consultation. Nurse Practitioner note has been reviewed, I agree with a documented findings and plan of care. Patient was seen and examined. Past Medical History Past Medical History: No Reported History, Skin Disorder Additional Past Medical History / Comment(s): possible hypothyroid, autoimmune skin disorder vitiligo History of Any Multi-Drug Resistant Organisms: None Reported Past Surgical History: Hernia Repair, Tonsillectomy Past Anesthesia/Blood Transfusion Reactions: No Reported Reaction Past Psychological History: No Psychological Hx Reported Smoking Status: Former smoker Past Alcohol Use History: None Reported Past Drug Use History: None Reported - Past Family History Father Family Medical History: Cancer Additional Family Medical History / Comment(s): gluacoma, emphysema, testicular cancer Mother Family Medical History: Coronary Artery Disease (CAD), Myocardial Infarction ([place]) Additional Family Medical History / Comment(s): [place] in her 30's, osteoporosis Sister(s) Family Medical History: Seizure Disorder Daughter(s) Family Medical History: No Reported History Son(s) Family Medical History: No Reported History Medications and Allergies Home Medications Medication Instructions Recorded Confirmed Type No Known Home Medications 03/16/18 10/24/21 History Allergies Allergy/AdvReac Type Severity Reaction Status Date / Time acetaminophen [From Tylenol] AdvReac Unknown Verified 10/24/21 17:41 Physical Exam Vitals: Vital Signs Temp Pulse Pulse Resp BP Pulse Ox 10/25/21 05:07 62 18 115/84 98 10/25/21 01:13 59 L 16 121/69 97 10/24/21 18:58 84 18 122/81 98 10/24/21 17:15 81 10/24/21 16:17 97.8 F 88 16 125/81 100 Intake and Output 10/24/21 10/25/21 10/25/21 22:59 06:59 14:59 Other: Weight 79.379 kg Results 10/24/21 17:36 10/24/21 17:36 Cardiac Enzymes 10/24/21 10/24/21 10/24/21 Range/Units 17:36 17:36 19:23 AST 40 (17-59) U/L Troponin I <0.012 <0.012 (0.000-0.034) ng/mL 10/24/21 Range/Units 21:56 AST (17-59) U/L Troponin I <0.012 (0.000-0.034) ng/mL Coagulation 10/24/21 Range/Units 17:36 PT 10.1 (9.0-12.0) sec APTT 24.9 (22.0-30.0) sec CBC 10/24/21 Range/Units 17:36 WBC 8.0 (3.8-10.6) k/uL RBC 4.70 (4.30-5.90) m/uL Hgb 14.8 (13.0-17.5) gm/dL Hct 45.8 (39.0-53.0) % Plt Count 296 (150-450) k/uL Comprehensive Metabolic Panel 10/24/21 Range/Units 17:36 Sodium 139 (137-145) mmol/L Potassium 4.3 (3.5-5.1) mmol/L Chloride 106 (98-107) mmol/L Carbon Dioxide 27 (22-30) mmol/L BUN 22 H (9-20) mg/dL Creatinine 1.11 (0.66-1.25) mg/dL Glucose 93 (74-99) mg/dL Calcium 9.6 (8.4-10.2) mg/dL AST 40 (17-59) U/L ALT 57 H (4-49) U/L Alkaline Phosphatase 133 H (38-126) U/L Total Protein 7.7 (6.3-8.2) g/dL Albumin 4.4 (3.5-5.0) g/dL Current Medications Generic Name Dose Route Start Last Admin Trade Name Freq PRN Reason Stop Dose Admin Aspirin 325 mg 10/25/21 09:00 Aspirin 325 Mg Tab PO DAILY [facility] Enoxaparin Sodium 40 mg 10/25/21 09:00 Enoxaparin 40 Mg/0.4 Ml Syringe SQ DAILY [facility] Morphine Sulfate 2 mg 10/24/21 23:48 Morphine Sulfate 2 Mg/Ml Syringe IVP Q4HR PRN Pain/Discomfort Naloxone HCl 0.2 mg 10/24/21 23:49 Naloxone 0.4 Mg/Ml 1 Ml Vial IV Q2M PRN Opioid Reversal Nitroglycerin 0.4 mg 10/24/21 19:08 Nitroglycerin Sl Tabs 0.4 Mg Tab SUBLINGUAL Q5M PRN Chest Pain Nitroglycerin 1 inch 10/25/21 00:00 10/25/21 06:45 Nitroglycerin Oint 1 Inch/Gm Packet TOPICAL Not Given Q6HR [facility] Intake and Output 10/24/21 10/25/21 10/25/21 22:59 06:59 14:59 Other: Weight 79.379 kg 10/24/21 17:36 10/24/21 17:36
--- NOTE | 2021-10-25 13:08 | ECHOF ---
Referral Reason:Chest pain MEASUREMENTS -------- HEIGHT: 180.3 cm WEIGHT: 79.4 kg BP: RVIDd: 2.2 cm (< 3.3) IVSd: 0.8 cm (0.6 - 1.1) LVIDd: 4.0 cm (3.9 - 5.3) LVPWd: 1.0 cm (0.6 - 1.1) IVSs: 1.6 cm LVIDs: 2.2 cm LVPWs: 1.8 cm LAESV Index (A-L): 17.53 ml/m Ao Diam: 2.9 cm (2.0 - 3.7) AV Cusp: 1.6 cm (1.5 - 2.6) LA Diam: 2.3 cm (2.7 - 3.8) MV EXCURSION: 12.755 mm (> 18.000) MV EF SLOPE: 152 mm/s (70 - 150) EPSS: 1.5 cm MV E Ascencion: 0.64 m/s MV DecT: 142 ms MV A Ascencion: 0.80 m/s MV E/A Ratio: 0.80 RAP: 5.00 mmHg RVSP: 15.95 mmHg FINDINGS -------- This was a technically good study. The left ventricular size is normal. Left ventricular wall thickness is normal. Overall left vent ricular systolic function is normal with, an EF between 55 - 60 %. The diastolic filling pattern is normal for the age of the patient 9.36. The right ventricle is normal in size. The left atrial size is normal. Normal LA size by volume 22+/-6 ml/m2. The right atrial size is normal. The aortic valve is trileaflet and appears structurally normal. The mitral valve is normal. Mild mitral regurgitation is present. The tricuspid valve appears structurally normal. Mild tricuspid regurgitation present. Right vent ricular systolic pressure is normal at < 35 mmHg. There is no pulmonic regurgitation present. The aortic root size is normal. Normal inferior vena cava with normal inspiratory collapse consistent with estimated right atrial pre ssure of 5 mmHg. There is no pericardial effusion. CONCLUSIONS -------- 1. The left ventricular size is normal. 2. Left ventricular wall thickness is normal. 3. Overall left ventricular systolic function is normal with, an EF between 55 - 60 %. 4. The diastolic filling pattern is normal for the age of the patient 9.36 5. Mild mitral regurgitation is present. 6. Mild tricuspid regurgitation present. 7. There is no pericardial effusion. [employer]: Christine Walker RDCS
--- NOTE | 2021-10-25 13:14 | P.STRESS ---
- Stress Test Note Stress Test Results/Findings: Exam Performed: stress echo exercise Exam Date: 10/25/21 Reason for Exam: CP Height: 5 ft 10 in Weight: 79.379 kg Protocol: YUMIKO Stage: 4 Duration of Exercise: 10:30 Resting Heart Rate: 66 Resting Blood Pressure: 108/62 Maximum Achieved Heart Rate: 179 Maximum Achieved Blood Pressure: 194/65 85% PMHR: 150 100% PMHR: 177 METS: 11.5 Technologist Comment: Stress Test Results/Findings: Patient underwent exercise stress echo with a Yumiko protocol treadmill stress test. Patient exercised into Stage 4 for a total of 11 minutes and 33 seconds reaching a total of 11.5 METS. Patient's maximum heart rate was 179 which represented 100 % age-predicted maximum heart rate. Stress EKG portion: At baseline patient's EKG showed rhythm, normal axis, no significant ST or T wave abnormalities. At peak exercise, EKG showed significant change from baseline. Stress echo portion: 2-D echocardiogram was performed in the parasternal long, personal short, apical 2 and apical four-chamber views at rest, peak exercise and in recovery. At baseline, echocardiogram showed left ventricular ejection fraction 55% without wall motion abnormalities. With peak exercise, echocardiogram shows improvement in left ventricular ejection fraction, increase contractility, decrease in left ventricular end systolic dimension without wall motion abnormalities consistent with a normal response to exercise. Conclusions: 1. Normal EKG and echo response to exercise without evidence of inducible ischemia. 2. Excellent exercise capacity. 3. Normal ejection fraction 55%
--- NOTE | 2021-10-25 13:37 | P.DS ---
Providers Date of admission: 10/24/21 19:23 Expected date of discharge: 10/25/21 Attending physician: Sera West MD Consults: 10/24/21 19:08 Consult Physician Urgent Consulting Provider: [facility] Consult Reason/Comments: Chest pain with radiation down the arm Do you want consulting provider notified?: Yes Primary care physician: Stated None Hospital Course: 41-year-old male with no significant past medical history presented with chest pain. Yesterday, in the morning he started to have some dull left sided chest pain, radiating down his left arm and the left jaw. He states it resolved shortly after. Throughout the day, he was doing his normal daily activities, no exertion, and the chest pain returned, became more intense and more frequent. It is located on the left side of his chest. Radiating down his left arm, he did have associated left hand numbness/tingling and diaphoresis. He also felt some mild palpitations. He denies associated shortness of breath, nausea, vomiting, lightheadedness, dizziness or syncope/near syncope. He is a non-smoker. Denies alcohol or illicit drug use. Family history includes grandfather had an GA and CABG in 40s, mother had GA and stent placement in her 40s. Evaluation in the emergency department was negative for acute coronary syndrome, EKG and troponins were okay. He was given 325mg aspirin. His chest pain has resolved. She was subsequently admitted for further evaluation. Troponin was cycled and remained negative. Patient was seen by cardiology who recommended doing an echocardiogram and a stress echo, both of which came back normal. Patient is currently doing well, will be discharged home in a stable condition. Plan - Discharge Summary Discharge Rx Participant: Yes New Discharge Prescriptions: No Action No Known Home Medications Discharge Medication List No Known Home Medications 03/16/18 [History] Follow up Appointment(s)/Referral(s): Dwayne Horowitz DO [STAFF PHYSICIAN] - 2 Weeks None,Stated [Primary Care Provider] - 1-2 days
[2021-10-25 14:57] VITALS: BP 113/71; PULSE 76
--- NOTE | 2021-10-28 14:40 | EST ---
Stress Test Results/Findings: Exam Performed: stress echo exercise Exam Date: 10/25/21 Reason for Exam: CP Height: 5 ft 10 in Weight: 79.379 kg Protocol: YUIMKO Stage: 4 Duration of Exercise: 10:30 Resting Heart Rate: 66 Resting Blood Pressure: 108/62 Maximum Achieved Heart Rate: 179 Maximum Achieved Blood Pressure: 194/65 85% PMHR: 150 100% PMHR: 177 METS: 11.5 Technologist Comment: Stress Test Results/Findings: Patient underwent exercise stress echo with a Yumiko protocol treadmill stress test. Patient exercised into Stage 4 for a total of 11 minutes and 33 seconds reaching a total of 11.5 METS. Patient's maximum heart rate was 179 which represented 100 % age-predicted maximum heart rate. Stress EKG portion: At baseline patient's EKG showed rhythm, normal axis, no significant ST or T wave abnormalities. At peak exercise, EKG showed significant change from baseline. Stress echo portion: 2-D echocardiogram was performed in the parasternal long, personal short, apical 2 and apical four-chamber views at rest, peak exercise and in recovery. At baseline, echocardiogram showed left ventricular ejection fraction 55% without wall motion abnormalities. With peak exercise, echocardiogram shows improvement in left ventricular ejection fraction, increase contractility, decrease in left ventricular end systolic dimension without wall motion abnormalities consistent with a normal response to exercise. Conclusions: 1. Normal EKG and echo response to exercise without evidence of inducible ischemia. 2. Excellent exercise capacity. 3. Normal ejection fraction 55% MTDD
== END 2021-10-25 16:11 | disposition home or self-care (01) ==
LOC: EC 16:05 → 6NMEDSUR 19:08 → INTOOBSV 19:23 → OBSVTOIN 19:23 → 6NMEDSUR 20:58 → UNDODISIN 10-25 16:11
PROVIDERS: ADMIT Internal Medicine; ATTEND Internal Medicine
DX: R07.89 Other chest pain (principal); R61 Generalized hyperhidrosis; R00.2 Palpitations; R20.0 Anesthesia of skin; R20.2 Paresthesia of skin; E07.9 Disorder of thyroid, unspecified; L80 Vitiligo; Z20.822 Contact with and (suspected) exposure to COVID-19; Z88.6 Allergy status to analgesic agent; Z98.890 Other specified postprocedural states; Z87.891 Personal history of nicotine dependence; Z82.49 Family history of ischemic heart disease and other diseases of the circulatory system; Z83.511 Family history of glaucoma; Z82.5 Family history of asthma and other chronic lower respiratory diseases; Z80.43 Family history of malignant neoplasm of testis; Z82.62 Family history of osteoporosis; Z82.0 Family history of epilepsy and other diseases of the nervous system
CPT/HCPCS: 96372; 99285; 36415; 93005 ×2; 93306; 93351; 85379; 80061; 80053; 83735; 84484; 85025; 85610; 85730; 87635; 71046; G0378 ×2; J1650

== ENCOUNTER → 2022-02-18 | Outpatient (CLI) | payer BC | END | disposition home or self-care (01) | LOC: LABWHC1 15:41 | PROVIDERS: ATTEND Otolaryngology | DX: J30.89 Other allergic rhinitis (principal) | CPT/HCPCS: 36415; 86001 ==

== ENCOUNTER 2022-05-11 16:20 | Emergency (ER) | payer BC ==
[2022-05-11 16:36] VITALS: BP 113/80; PULSE 78; RESP 16; TEMP 98
--- NOTE | 2022-05-11 16:37 | ED ---
General Adult HPI - General Chief complaint: Back Pain/Injury Stated complaint: Fall-back pain Time Seen by Provider: 05/11/22 16:36 Source: patient Mode of arrival: wheelchair Limitations: no limitations - History of Present Illness Initial comments: Patient presents to the ED with his for evaluation. Patient states that he accidentally twisted his back the wrong way while getting up off of a bench 3 days ago, and he states that he has been having right lumbar back pain radiating down his right leg since then. Patient states that he saw a chiropractor 2 days ago and had a back adjustment performed, but he states that he obtained little relief. Patient states that he has been taking Motrin and Ovando for his pain without much relief. Patient states that his pain is worse with changes in position and bending. Patient denies direct back trauma, falling, leg numbness or weakness, incontinence or urinary retention, dysuria/hematuria/urinary frequency/urinary symptoms, fever or chills, headache, chest pain, dyspnea, dizziness, abdominal pain, nausea or vomiting, or any other symptoms or complaints. - Related Data Previous Rx's Medication Instructions Recorded Cyclobenzaprine [Flexeril] 10 mg PO TID PRN #12 tablet 05/11/22 methylPREDNISolone Dose Pack 24 mg PO DAILY #1 tab 05/11/22 [Medrol Dose Pack] Allergies Allergy/AdvReac Type Severity Reaction Status Date / Time acetaminophen [From Tylenol] AdvReac Unknown Verified 05/11/22 16:35 Review of Systems ROS Statement: Those systems with pertinent positive or pertinent negative responses have been documented in the HPI. ROS Other: All systems not noted in ROS Statement are negative. Past Medical History Past Medical History: No Reported History, Skin Disorder Additional Past Medical History / Comment(s): possible hypothyroid, autoimmune skin disorder vitiligo History of Any Multi-Drug Resistant Organisms: None Reported Past Surgical History: Hernia Repair, Tonsillectomy Past Anesthesia/Blood Transfusion Reactions: No Reported Reaction Past Psychological History: No Psychological Hx Reported Smoking Status: Former smoker Past Alcohol Use History: None Reported Past Drug Use History: None Reported - Past Family History Father Family Medical History: Cancer Additional Family Medical History / Comment(s): [place], emphysema, testicular cancer Mother Family Medical History: Coronary Artery Disease (CAD), Myocardial Infarction (VA) Additional Family Medical History / Comment(s): VA in her 30's, osteoporosis Sister(s) Family Medical History: Seizure Disorder Daughter(s) Family Medical History: No Reported History Son(s) Family Medical History: No Reported History General Exam Limitations: no limitations General appearance: alert, in no apparent distress Head exam: Present: atraumatic, normocephalic Eye exam: Present: normal appearance, EOMI ENT exam: Present: mucous membranes moist Neck exam: Absent: tenderness Respiratory exam: Present: normal lung sounds bilaterally. Absent: respiratory distress, wheezes, rales, rhonchi, stridor Cardiovascular Exam: Present: regular rate, normal rhythm, normal heart sounds, other (Normal radial pulses bilaterally) GI/Abdominal exam: Present: soft. Absent: distended, tenderness, guarding Extremities exam: Present: full ROM. Absent: tenderness, pedal edema, calf tenderness Back exam: Present: other (Mild right lumbar back tenderness). Absent: CVA tenderness (R), CVA tenderness (L) Neurological exam: Present: alert, oriented X3, other (No evidence of lower extremity neurological deficit or saddle anesthesia). Absent: motor sensory deficit Psychiatric exam: Present: normal affect, normal mood Skin exam: Present: warm, dry, intact, normal color Course Vital Signs 05/11/22 16:33 Temperature 98 F Pulse Rate 78 Respiratory 16 Rate Blood Pressure 113/80 O2 Sat by Pulse 96 Oximetry Medical Decision Making - Medical Decision Making Patient's pain has improved with ED treatment. Patient's lumbosacral spine x- rays are negative. Patient has no evidence of lower extremity neurological deficit or saddle anesthesia on examination. Patient denies direct back trauma or falling. Patient denies incontinence or urinary retention. I see no red flags at this time, and I do not suspect an emergent medical condition at this time. I suspect that the patient's symptoms are likely secondary to muscle strain and/or lumbar radiculopathy/sciatica. Will discharge patient home with a prescription for a Medrol Dosepak, as well as a prescription for Flexeril. Patient was counseled about lumbar back pain and sciatica, and he was clearly explained return and follow-up instructions. Patient was instructed to follow up closely with a primary care provider. Patient feels comfortable with this plan. Will discharge patient home with his at this time. - Radiology Data Lumbosacral spine x-rays: No acute process. Disposition Clinical Impression: Lumbar back pain, Sciatica Disposition: HOME SELF-CARE Condition: Stable Instructions (If sedation given, give patient instructions): Sciatica (ED), Acute Low Back Pain (ED) Additional Instructions: Return to the ER immediately should you develop new or worsening pain, leg numbness or weakness, trouble controlling your bladder or bowels, a fever, vomiting, feeling dizzy or faint, shortness of breath, or new or worsening symptoms. Follow up closely with your primary care provider. Prescriptions: Cyclobenzaprine [Flexeril] 10 mg PO TID PRN #12 tablet PRN Reason: Pain methylPREDNISolone Dose Pack [Medrol Dose Pack] 24 mg PO DAILY #1 tab Is patient prescribed a controlled substance at d/c from ED?: No Referrals: None,Stated [Primary Care Provider] - 1-2 days John Malin MD [STAFF PHYSICIAN] - 1-2 days Time of Disposition: 17:33
[2022-05-11] MEDS ORDERED: HYDROmorphone 1 MG/ML 1 ML SYRINGE IM STA (16:44)
--- NOTE | 2022-05-11 17:15 | XR ---
EXAMINATION TYPE: XR lumbosacral spine min 4V DATE OF EXAM: 05/11/2022 5:02 PM INDICATION: Patient age:Male; 42 years old; Reason for study: right lumbar back pain/injury; COMPARISON: Lumbar spine radiograph 09/21/2017 TECHNIQUE: Frontal, lateral , bilateral oblique and coned in L5-S1 lateral views of the spine. FINDINGS: No evidence of any acute osseous pathology. No evidence of loss of vertebral body height i s seen. There is normal alignment of the lumbar vertebral bodies. IMPRESSION: No acute process.
== END 2022-05-11 17:42 | disposition home or self-care (01) ==
LOC: EC 16:20
DX: M54.50 Low back pain, unspecified (principal); Z82.49 Family history of ischemic heart disease and other diseases of the circulatory system; Z87.891 Personal history of nicotine dependence; Z88.6 Allergy status to analgesic agent
CPT/HCPCS: 72110; 99283; 96372; J1170